=== PATIENT | female | born 1945 | race Caucasian/White ===

== ENCOUNTER 2016-12-17 12:41 | Inpatient (IN) | payer MEDICARE, OTHER ==
[~2016-12-17] VITALS: Ht 170.2 cm; Wt 73.9 kg
[~2016-12-17 12:41] MED LIST: ADVAIR 100-501 EACH IH; AGGRENOX PO; CALCIUM 600 +1 EACH PO; CEFDINIR300 MG PO; COMBIVENT RESPIM4 GM IH; COZAAR100 MG PO; DILANTIN100 MG PO; FEMARA2.5 MG PO; HYDROCHLOROTHIA25 MG PO; KEPPRA1000 MG PO; LOPRESSOR100 MG PO; NORVASC5 MG PO; PERCOCET 10-321 EACH PO; PREDNISONE20 MG PO; SPIRIVA18 MCG IH; SYNTHROID125 MCG PO; TUSSIONEX PENN115 ML PO; VENTOLIN HFA8 GM IH; ZITHROMAX TRI-500 MG PO
--- NOTE | 2016-12-19 17:27 | NUR ---
REPORT TAKEN FROM [facility] TO TAKE OVER CARE OF PATIENT
== END 2016-12-20 16:11 | disposition home or self-care (01) | DRG 190 ==
LOC: ER 12:41 → MED 16:49
PROVIDERS: ADMIT Internal Medicine
DX: J44.1 Chronic obstructive pulmonary disease with (acute) exacerbation (principal); J18.9 Pneumonia, unspecified organism; E87.0 Hyperosmolality and hypernatremia; I69.354 Hemiplegia and hemiparesis following cerebral infarction affecting left non-dominant side; J43.9 Emphysema, unspecified; J84.10 Pulmonary fibrosis, unspecified; E87.5 Hyperkalemia; E03.9 Hypothyroidism, unspecified; G40.909 Epilepsy, unspecified, not intractable, without status epilepticus; M54.5 Low back pain; G89.29 Other chronic pain; D86.9 Sarcoidosis, unspecified; Z87.01 Personal history of pneumonia (recurrent); Z99.81 Dependence on supplemental oxygen; I10 Essential (primary) hypertension; Z85.3 Personal history of malignant neoplasm of breast; Z79.899 Other long term (current) drug therapy; Z88.0 Allergy status to penicillin; Z88.2 Allergy status to sulfonamides; Z88.8 Allergy status to other drugs, medicaments and biological substances; Z90.12 Acquired absence of left breast and nipple; Z87.891 Personal history of nicotine dependence; Z80.0 Family history of malignant neoplasm of digestive organs; D69.6 Thrombocytopenia, unspecified
CPT/HCPCS: 36415; 94640; J0456; J1200; J1650; J3370; J7050; Q9967

== ENCOUNTER 2016-12-17 12:41 | Emergency (ER) | payer MEDICARE, OTHER | END 2016-12-17 16:48 | disposition admitted as inpatient to this hospital (09) | LOC: ER 12:41 | DX: J44.1 Chronic obstructive pulmonary disease with (acute) exacerbation (principal); J18.9 Pneumonia, unspecified organism; I10 Essential (primary) hypertension; E07.9 Disorder of thyroid, unspecified; G40.909 Epilepsy, unspecified, not intractable, without status epilepticus; F32.9 Major depressive disorder, single episode, unspecified; Z87.891 Personal history of nicotine dependence; Z79.82 Long term (current) use of aspirin; Z88.0 Allergy status to penicillin; Z88.2 Allergy status to sulfonamides; Z88.8 Allergy status to other drugs, medicaments and biological substances | CPT/HCPCS: 36415; 96361; 96365; 96375; J0456; J1200 ==